=== PATIENT | female | born 1995 | race Caucasian/White ===

== ENCOUNTER 2017-07-03 16:44 | Emergency (ER) | payer OTHER ==
[2017-07-03] MEDS ORDERED: ACETAMINOPHEN 325 MG TABLET (FP) PO ONE (16:47)
[2017-07-03 16:51] VITALS: BP 126/94; PULSE 90; TEMP 98.9; BMI 28.4
--- NOTE | 2017-07-03 16:52 | PDOC ---
History of Present Illness - General History Source: Patient, Significant Other, Old Records Exam Limitations: No Limitations - History of Present Illness Initial Comments: 07/03/17 16:52 The patient is a 21 year old female with a past medical history of ADHD and anxiety who presents to the emergency department today with headaches and blurred vision for two weeks, right hand tremor for one day. The patient describes her headaches as intermittent, diffuse squeezing in sensation with a 7 /10 in severity. The patient states that over the past two weeks she has had approximately one headache daily and that they are normally 3 hours in durations. The patient has taken advil to alleviate symptoms with no relief but notes that her headaches resolve suddenly. Patient denies any history of migraines, photophobia, or triggers. She states that her right hand tremor began today and was not triggered by any particular factor. She denies fever, nausea, diarrhea, or cough. <Norbert Reddy - Last Filed: 07/03/17 16:52> - General History Source: Patient Exam Limitations: No Limitations <Santos Jensen - Last Filed: 07/03/17 17:41> - General Chief Complaint: Headache Stated Complaint: HEADACHE Time Seen by Provider: 07/03/17 16:46 Past History <Norbert Reddy - Last Filed: 07/03/17 16:52> - Past Medical History Psychiatric Problems: Yes (ADHD) - Suicide/Smoking/Psychosocial Hx Smoking History: Never smoked Have you smoked in the past 12 months: No Hx Alcohol Use: (social) Substance Use Type: None <Santos Jensen - Last Filed: 07/03/17 17:41> - Past Medical History Allergies/Adverse Reactions: Allergies Allergy/AdvReac Type Severity Reaction Status Date / Time No Known Allergies Allergy Verified 07/03/17 16:45 Home Medications: Ambulatory Orders Lisdexamfetamine Dimesylate [Vyvanse] 60 mg PO DAILY 07/03/17 Review of Systems - Review of Systems Able to Perform ROS?: Yes Comments:: 07/03/17 16:53 GENERAL/CONSTITUTIONAL: No fever or chills. No weakness. HEAD, EYES, EARS, NOSE AND THROAT: No change in vision. No ear pain or discharge. No sore throat. CARDIOVASCULAR: No chest pain or shortness of breath. RESPIRATORY: No cough, wheezing, or hemoptysis. GASTROINTESTINAL: No nausea, vomiting, diarrhea or constipation. GENITOURINARY: No dysuria, frequency, or change in urination. MUSCULOSKELETAL: No joint or muscle swelling or pain. No neck or back pain. SKIN: No rash NEUROLOGIC: (+) Right hand tremor, headache. No vertigo or loss of consciousness. ENDOCRINE: No increased thirst. No abnormal weight change. HEMATOLOGIC/LYMPHATIC: No anemia, easy bleeding, or history of blood clots. ALLERGIC/IMMUNOLOGIC: No hives or skin allergy. <Norbert Reddy - Last Filed: 07/03/17 16:52> *Physical Exam - Vital Signs Last Vital Signs Temp Pulse Resp BP Pulse Ox 98.9 F 90 18 126/94 100 07/03/17 16:45 07/03/17 16:45 07/03/17 16:45 07/03/17 16:45 07/03/17 16:45 - Physical Exam Comments: 07/03/17 16:53 GENERAL: Awake, alert, and fully oriented, in no acute distress HEAD: No signs of trauma EYES: PERRLA, EOMI, sclera anicteric, conjunctiva clear ENT: Auricles normal inspection, hearing grossly normal, nares patent, oropharynx clear without exudates. Moist mucosa NECK: Normal ROM, supple, no lymphadenopathy, JVD, or masses LUNGS: Breath sounds equal, clear to auscultation bilaterally. No wheezes, and no crackles HEART: Regular rate and rhythm, normal S1 and S2, no murmurs, rubs or gallops ABDOMEN: Soft, nontender, normoactive bowel sounds. No guarding, no rebound. No masses EXTREMITIES: Normal range of motion, no edema. No clubbing or cyanosis. No cords, erythema, or tenderness NEUROLOGICAL: CN II-XII intact, 5/5 strength upper and lower extremities, Sensation intact throughout all extremities, No pronator drift, Gait Normal, Speech Normal,Finger to nose intact, Rapid alternating movements intact <Norbert Reddy - Last Filed: 07/03/17 16:52> - Vital Signs Last Vital Signs Temp Pulse Resp BP Pulse Ox 98.9 F 90 18 126/94 100 07/03/17 16:45 07/03/17 16:45 07/03/17 16:45 07/03/17 16:45 07/03/17 16:45 <Santos Jensen Filed: 07/03/17 17:41> ED Treatment Course - RADIOLOGY Radiology Studies Ordered: Category Date Time Status HEAD CT WITHOUT CONTRAST [CT] Stat CT Scan 07/03/17 16:46 Ordered <Santos Jensen Filed: 07/03/17 17:41> Medical Decision Making - Medical Decision Making 07/03/17 17:23 A portion of this note was documented by scribe services under my direction. I have reviewed the details of the note, within reason, and agree with the documentation with the following case summary and management plan written by me. Patient treated in the ED. Nursing notes are reviewed and incorporated into the medical decision-making. Vital signs reviewed. Vital Signs Temp Pulse Resp BP Pulse Ox 98.9 F 90 18 126/94 100 07/03/17 16:45 07/03/17 16:45 07/03/17 16:45 07/03/17 16:45 07/03/17 16:45 21-year-old female patient with past medical history of anxiety and ADHD presents with headaches. Patient denies any past medical history and denies any family history of neurological diseases including migraines. The patient reports that for 2 weeks that she has been developing spontaneous tension global -like headaches that would last approximately 3 hours without provoking or improving factors. States that they occur spontaneously and does not typically occur at a time pattern. Patient reports with the headaches that she intermittent has left eye blurring. However, denies other neurological symptoms. Today, the patient reports she was doing nothing unusual when she started developing tremors of her hands that resolved. Patient had then called her primary care physician but had instructed to go to the ER for an evaluation. The patient denies any history of migraines. Though the patient has no photophobia or phonophobia, it may potentially be that this could be a migraine. However, the headache is not apparent at this time. Patient isn't completely neurologically intact at this time. At this time, head CT was ordered to rule out acute intracranial pathology such as intracranial tumors or other findings. However, if the workup demonstrates no acute findings, I will refer the patient to a neurologist for further workup. 07/03/17 17:[address] is negative. Will refer her to a neurologist. Patient feels reassurred. <Santos Jensen Filed: 07/03/17 17:41> *DC/Admit/Observation/Transfer - Attestations Scribe Attestion: 07/03/17 16:53 Documentation prepared by Norbert Reddy, acting as medical editor for Santos Jensen MD. <Norbert Reddy - Last Filed: 07/03/17 16:52> - Discharge Dispostion Admit: No <Santos Jensen - Last Filed: 07/03/17 17:41> Diagnosis at time of Disposition: Headache Qualifiers: Headache type: unspecified Headache chronicity pattern: unspecified pattern Intractability: not intractable Qualified Code(s): R51 - Headache; R51 - Headache - Discharge Dispostion Disposition: HOME Condition at time of disposition: Stable - Referrals Referrals: Brody Tucker MD [Staff Physician] - - Patient Instructions Printed Discharge Instructions: DI for Headache Additional Instructions: Your head CT is negative. Please take 600 mg ibuprofen every 6 hours as needed for headache (can be purchased over the counter). Make an appointment with a neurologist. Call to schedule an appointment.
== END 2017-07-03 17:47 | disposition home or self-care (01) ==
LOC: FER 16:44
DX: R51 Headache (principal); F90.9 Attention-deficit hyperactivity disorder, unspecified type
CPT/HCPCS: 70450-TC; 84703; 99283-25

== ENCOUNTER 2017-07-22 16:47 | Emergency (ER) | payer OTHER ==
[2017-07-22 16:52] VITALS: BP 134/78; PULSE 76; TEMP 98.3; BMI 28.1
[2017-07-22] MEDS ORDERED: IBUPROFEN 400 MG TABLET (FP) PO ONE ×2 (17:20→17:31)
--- NOTE | 2017-07-22 17:20 | PDOC ---
History of Present Illness - General History Source: Patient Exam Limitations: No Limitations - History of Present Illness Initial Comments: 07/22/17 17:26 21 year old female, with PMH of anxiety (Xanax as needed) and ADHD, who presents to the emergency room complaining of difficulty breathing that started 15 minutes ago when she was cleaning her bathroom with a solution of clorox bleach and other cleaning liquid(does not know the name). She reports that she feels as though it is difficult to get a full breath of air.. The patient is speaking in full sentences. Denies chest pain, cough. Denies lightheadedness, headache. Allergies: NKA Social hx: Marijuana use. Denies other recreational drug use. <Lashanda Mcclure - Last Filed: 07/22/17 17:26> <Dallas Buckley - Last Filed: 07/22/17 17:44> - General Chief Complaint: Shortness of Breath Stated Complaint: sob Time Seen by Provider: 07/22/17 16:58 Past History <Lashanda Mcclure - Last Filed: 07/22/17 17:26> - Past Medical History COPD: No Psychiatric Problems: Yes (ADHD) - Suicide/Smoking/Psychosocial Hx Smoking History: Never smoked Have you smoked in the past 12 months: No Hx Alcohol Use: Yes Drug/Substance Use Hx: Yes Substance Use Type: Alcohol, Marijuana <Dallas Buckley - Last Filed: 07/22/17 17:44> - Past Medical History Allergies/Adverse Reactions: Allergies Allergy/AdvReac Type Severity Reaction Status Date / Time No Known Allergies Allergy Verified 07/22/17 16:47 Home Medications: Ambulatory Orders Alprazolam [Xanax] 1 mg PO ASDIR PRN 07/22/17 Dextroamphetamine/Amphetamine [Adderall Xr 30 mg Capsule] 60 mg PO DAILY Ibuprofen 400 mg PO TID PRN #20 tablet 07/22/17 Review of Systems - Review of Systems Able to Perform ROS?: Yes Comments:: 07/22/17 17:26 CONSTITUTIONAL: Absent: fever, chills, diaphoresis, generalized weakness, malaise, loss of appetite HEENT: Absent: rhinorrhea, nasal congestion, throat pain, throat swelling, difficulty swallowing, mouth swelling, ear pain, eye pain, visual Changes CARDIOVASCULAR: Absent: chest pain, syncope, palpitations, irregular heart rate, lightheadedness , peripheral edema RESPIRATORY: Present: difficulty breathing Absent: cough, dyspnea with exertion, orthopnea, wheezing, stridor, hemoptysis MUSCULOSKELETAL: Absent: myalgia, arthralgia, joint swelling SKIN: Absent: rash, itching, pallor HEMATOLOGIC/IMMUNOLOGIC: Absent: easy bleeding, easy bruising, lymphadenopathy, frequent infections NEUROLOGIC: Absent: headache, focal weakness or paresthesias, dizziness, unsteady gait, seizure, mental status changes, bladder or bowel incontinence PSYCHIATRIC: Absent: depression, suicidal or homicidal ideation, hallucinations. <Lashanda Mcclure - Last Filed: 07/22/17 17:26> *Physical Exam - Vital Signs Last Vital Signs Temp Pulse Resp BP Pulse Ox 98.3 F 76 17 134/78 100 07/22/17 16:47 07/22/17 16:47 07/22/17 16:47 07/22/17 16:47 07/22/17 16:47 - Physical Exam Comments: 07/22/17 17:26 GENERAL: Well developed, well nourished. Awake and alert. In no acute distress. HEENT: Normocephalic, atraumatic. PERRLA, EOMI. No conjunctival pallor. Sclera are non- icteric. Moist mucous membranes. Oropharynx is clear. CARDIOVASCULAR: Regular rate and rhythm. No murmurs, rubs, or gallops. Distal pulses are 2+ and symmetric. PULMONARY: No evidence of respiratory distress. Lungs clear to auscultation bilaterally. No wheezing, rales or rhonchi. EXTREMITIES: No cyanosis. No clubbing. No edema. No calf tenderness. SKIN: Warm and dry. Normal capillary refill. No rashes. No jaundice. NEUROLOGICAL: Alert, awake, appropriate. Cranial nerves 2-12 intact. PSYCHIATRIC: Cooperative. Good eye contact. Appropriate mood and affect. <Lashanda Mcclure - Last Filed: 07/22/17 17:26> - Vital Signs Last Vital Signs Temp Pulse Resp BP Pulse Ox 98.3 F 76 17 134/78 100 07/22/17 16:47 07/22/17 16:47 07/22/17 16:47 07/22/17 16:47 07/22/17 16:47 <Dallas Buckley - Last Filed: 07/22/17 17:44> Medical Decision Making - Medical Decision Making 07/22/17 17:44 Patient remained stable, pain improved with Motrin, respiratory rate 14 and unlabored and O2 sat 100% To continue Motrin as needed and follow up if there is no improvement as directed. Fully ambulatory and in no significant distress upon discharge. <Dallas Buckley - Last Filed: 07/22/17 17:44> *DC/Admit/Observation/Transfer - Attestations Scribe Attestion: 07/22/17 17:27 Documentation prepared by HOME Galindo, acting as director of medical education for Dallas Buckley MD. <Lashanda Mcclure - Last Filed: 07/22/17 17:26> - Discharge Dispostion Admit: No <Dallas Buckley - Last Filed: 07/22/17 17:44> Diagnosis at time of Disposition: Inhalation injury - Discharge Dispostion Disposition: HOME Condition at time of disposition: Improved - Prescriptions Prescriptions: Ibuprofen 400 mg PO TID PRN #20 tablet PRN Reason: Pain - Patient Instructions Printed Discharge Instructions: DI for Inhalation Injury - Post Discharge Activity Forms/Work/School Notes: Back to Work
== END 2017-07-22 18:04 | disposition home or self-care (01) ==
LOC: FER 16:47
DX: Z77.018 Contact with and (suspected) exposure to other hazardous metals (principal); F41.9 Anxiety disorder, unspecified; F90.9 Attention-deficit hyperactivity disorder, unspecified type; X58.XXXA Exposure to other specified factors, initial encounter; Y93.E9 Activity, other interior property and clothing maintenance; Y92.9 Unspecified place or not applicable
CPT/HCPCS: 99281-25